=== PATIENT | female | born 1980 | race Caucasian/White ===

== ENCOUNTER 2020-04-25 16:00 | Inpatient (IN) | payer SELFPAY ==
[~2020-04-25 16:00] MED LIST: Dexamethasone 20 MG/5 ML VIAL ONE; EPHEDRINE 25 MG/5 ML SYRINGE ONE; Ketorolac Tromethamine 30 MG/ML VIAL ONE; Lidocaine 1% PF 5 ML VIAL ONE; Ondansetron PF 4 MG/2 ML Vial ONE; PROPOFOL 200 MG/20 ML VIAL ONE
[2020-04-25] MEDS ORDERED: Fentanyl 100 MCG/2 ML VIAL ONE ×2 (17:04→18:54)
[2020-04-25] MEDS ORDERED: Bacitracin Zinc Ointment 30 gm TUBE ONE (17:14)
[2020-04-25] MEDS ORDERED: Bupivacaine PF 0.5% 30 ML VIAL ONE (17:14)
[2020-04-25] MEDS ORDERED: Sodium Chloride 0.9% 0 ML ONE (17:14)
[2020-04-25] MEDS ORDERED: Acetaminophen 325 MG TAB PO PRN (17:28)
[2020-04-25] MEDS ORDERED: Ondansetron PF 4 MG/2 ML Vial SLOW IVP PRN (17:28)
[2020-04-25] MEDS ORDERED: Promethazine HCl 25 MG/ML VIAL IM PRN (17:28)
[2020-04-25] MEDS ORDERED: Fentanyl 100 MCG/2 ML VIAL SLOW IVP PRN (17:28)
[2020-04-25] MEDS ORDERED: traMADol HCl 50 MG TAB PO PRN (17:28)
[2020-04-25] MEDS ORDERED: Bisacodyl 10 MG SUPP PR PRN (17:28)
[2020-04-25] MEDS ORDERED: Milk Of Magnesia 30 ML UDCUP PO PRN (17:28)
[2020-04-25] MEDS ORDERED: Acetaminophen/Codeine 30-300mg Tablet PO PRN (17:28)
[2020-04-25] MEDS ORDERED: Communication Order-Pharmacy FS SCH (17:30)
[2020-04-25] MEDS ORDERED: Meperidine HCl/PF 25 MG/ML VIAL IM PRN (17:31)
[2020-04-25] MEDS: Ketorolac Tromethamine 30 MG/ML VIAL IVP SCH ×2 (20:29→23:21)
[2020-04-25] MEDS: Aspirin 81 mg Enteric Coated Tablet PO SCH (20:33)
[2020-04-25] MEDS: HYDROcodone/Acetaminophen 5/325 mg Tablet PO PRN (20:34)
[2020-04-25] MEDS ORDERED: TETANUS AND DIPHTHERIA TOX/PF 0.5 ML DISP.SYRIN IM SCH (21:00)
[2020-04-25 22:03] VITALS: BMI 21.2
[2020-04-25] MEDS: Sodium Chloride 0.9% 100 ML IV SCH ×2 (22:07→22:08)
[2020-04-25] MEDS: Sodium Chloride 0.9% 1,000 ML IV SCH (22:08)
[2020-04-25] MEDS: Vancomycin 1 GM in Premix Bag 1 BAG IVPB SCH (23:21)
[2020-04-26] MEDS: HYDROcodone/Acetaminophen 5/325 mg Tablet PO PRN ×4 (05:40→20:20)
[2020-04-26] MEDS: Ketorolac Tromethamine 30 MG/ML VIAL IVP SCH ×3 (05:41→18:23)
[2020-04-26] MEDS: Sodium Chloride 0.9% 1,000 ML IV SCH ×4 (05:43→20:35)
[2020-04-26 07:38] LABS: #Lymphocytes 1.7 thou/uL (1.20-3.40); #Monocytes 0.7 thou/uL (0.11-0.59); %Basophils 0.2 % (0.0-1.0); %Eosinophils 0.2 % (0.0-10.0); %Lymphocytes 23.3 % (21.0-51.0); %Monocytes 9.7 % (0.0-10.0); %Neutrophils 66.7 % (42.0-75.0); Hemoglobin 10.8 g/dL (12.0-16.0); Mean Corpuscular HGB CONC 32.1 g/dL (32.0-36.0); Mean Corpuscular Hemoglobin 28.4 pg (27.0-31.0); Mean Corpuscular Volume 88.6 fL (78.0-98.0); Mean Platelet Volume 7.2 fL (7.4-10.4); Platelet Count 483 thou/uL (130-400); RBC Distribution Width 14.7 % (11.5-14.5); White Blood Cell (WBC) Count 7.5 thou/uL (4.8-10.8)
[2020-04-26] MEDS: Aspirin 81 mg Enteric Coated Tablet PO SCH ×2 (08:43→20:16)
[2020-04-26] MEDS: Vancomycin 1 GM in Premix Bag 1 BAG IVPB SCH ×2 (08:43→16:28)
--- NOTE | 2020-04-26 08:56 | OP ---
DATE OF PROCEDURE: 04/25/2020 PREOPERATIVE DIAGNOSIS: Right middle finger PIP joint abscess. POSTOPERATIVE DIAGNOSIS: Right middle finger PIP joint abscess. FINDINGS: PIP joint abscess, intertendinous 3 mm large tendon defect with abscess and subcutaneous abscess, all in line with each other at the PIP joint, dorsum, right middle finger. PROCEDURE PERFORMED: Arthrotomy with drainage of abscess, proximal phalangeal joint, right middle finger. SPECIMEN: Cultures: 1. Subcutaneous abscess. 2. Intertendinous abscess. 3. PIP joint abscess. HISTORY: The patient reports approximately 2 weeks ago, she hit her hand while working with metal and a hammer. She had bleeding for approximately 10 to 15 minutes, got control of it and had no problem for approximately a week, but over the last 5 to 7 days noticed progressive swelling, erythema and the last two days inability to make a fist. She noticed "a pocket" of fluid over this joint. DESCRIPTION OF PROCEDURE: After successful general endotracheal anesthesia, the limb was prepped and draped. We had 10 mL of 0.5% Marcaine block given at the level of the MP joint and then we exsanguinated the limb. We inflated tourniquet to 250 mmHg pressure, made a curvilinear incision, staying off the center of the joint, we found immediately as soon as we opened the skin, there was more gross mucopurulence, although minute escaped and we cultured this subcutaneous cavity. We dissected and trimmed this abscess cavity. We saw a small rent in the tendon with some thick slime layer and this was also an intertendinous abscess, so we cultured this as well. Finally, we made arthrotomy on the ulnar side in the junction between the extensor central slip and the lateral bands and carried this into the joint and immediately, over the head of the proximal phalanx, caudal surface, there was slime there with mucopurulence and we resected this. Each individual layer was sent for cultures. We then irrigated the joint with 1500 mL of normal saline, subcu with 1500 mL under bulb syringe pressure. Deflated the tourniquet, obtained hemostasis, and left the joint open with a wet-to-dry normal saline packing down below the level of the tendon and a bulky dressing was applied with excellent circulation. She left the operating room without evidence of anesthetic or operative complication. Job ID: [id number]
[2020-04-26] MEDS: Morphine 4 MG/ML VIAL SLOW IVP PRN (23:07)
[2020-04-26 23:48] LABS: Vancomycin, Trough 13.5 ug/mL
[2020-04-27] MEDS: Vancomycin 1 GM in Premix Bag 1 BAG IVPB SCH ×3 (00:54→16:13)
[2020-04-27] MEDS: HYDROcodone/Acetaminophen 5/325 mg Tablet PO PRN ×5 (01:00→18:53)
[2020-04-27] MEDS: Aspirin 81 mg Enteric Coated Tablet PO SCH ×2 (07:55→21:26)
[2020-04-27] MEDS: Sodium Chloride 0.9% 1,000 ML IV SCH ×2 (14:48→21:31)
[2020-04-27] MEDS: Morphine 4 MG/ML VIAL SLOW IVP PRN (18:04)
[2020-04-27] MEDS: Ketorolac Tromethamine 30 MG/ML VIAL IVP PRN (21:30)
[2020-04-28] MEDS: Vancomycin 1 GM in Premix Bag 1 BAG IVPB SCH (00:12)
[2020-04-28] MEDS: HYDROcodone/Acetaminophen 5/325 mg Tablet PO PRN ×3 (00:15→18:46)
[2020-04-28] MEDS: Ketorolac Tromethamine 30 MG/ML VIAL IVP PRN (06:35)
[2020-04-28] MEDS ORDERED: Fentanyl 100 MCG/2 ML VIAL ONE ×3 (11:51→16:02)
[2020-04-28] MEDS ORDERED: Lidocaine 1% PF 5 ML VIAL ONE (12:19)
[2020-04-28] MEDS ORDERED: Ketorolac Tromethamine 30 MG/ML VIAL ONE (12:19)
[2020-04-28] MEDS ORDERED: PROPOFOL 200 MG/20 ML VIAL ONE (12:19)
[2020-04-28] MEDS ORDERED: Dexamethasone 20 MG/5 ML VIAL ONE (12:19)
[2020-04-28] MEDS ORDERED: EPHEDRINE 25 MG/5 ML SYRINGE ONE (12:19)
[2020-04-28] MEDS ORDERED: Ondansetron PF 4 MG/2 ML Vial ONE (12:19)
[2020-04-28] MEDS ORDERED: Midazolam HCl 2 mg/2 ml Vial ONE (14:01)
[2020-04-28] MEDS ORDERED: Bacitracin Zinc Ointment 30 gm TUBE ONE (14:03)
[2020-04-28] MEDS ORDERED: Bupivacaine PF 0.5% 30 ML VIAL ONE (14:03)
[2020-04-28] MEDS ORDERED: Clindamycin/D5W 600 mg/50 ml Premix Bag ONE (14:15)
[2020-04-28 15:48] LABS: Fungus Stain Final report (.)
[2020-04-28 16:40] VITALS: BP 120/73; TEMP 97.9
[2020-04-28] MEDS: Sodium Chloride 0.9% 1,000 ML IV SCH (16:44)
[2020-04-28] MEDS: Aspirin 81 mg Enteric Coated Tablet PO SCH (16:44)
--- NOTE | 2020-04-28 20:33 | CON ---
DATE OF CONSULTATION: 04/28/2020 REASON FOR CONSULTATION: Injury to right hand with tenosynovitis and septic arthritis. HISTORY OF PRESENT ILLNESS: A 39-year-old with a history of injury to the right hand while working on a table with a sledgehammer. Initially, the areas of laceration healed, but then she developed inflammatory process localized around the third digit right hand. Dr. Berry performed operative intervention on . It basically identified abscesses and tenosynovitis and PIP joint abscess. No osteomyelitis was present. The patient currently is postoperatively she is feeling okay and wants to go home. No headaches, visual symptoms, sore throat, odynophagia, or dysphagia. No cough or sputum production. No chest pain. No abdominal pain or diarrhea. No genitourinary symptoms. No other joint symptoms or neurological symptoms. PAST MEDICAL HISTORY: Not particularly remarkable. SOCIAL HISTORY: Lives in [place]. Current smoker. Drinks occasionally. History of marijuana use in the past. FAMILY HISTORY: Asthma and coronary disease. ALLERGIES: ERYTHROMYCIN WITH DIARRHEA IS NOT A TRUE ALLERGY. CURRENT MEDICATIONS: 1. [place]. 2. Ecotrin. 3. Dulcolax. 4. Sublimaze. 5. Toradol. 6. Morphine. 7. Zofran. 8. Phenergan. 9. Ultram. PHYSICAL EXAMINATION: VITAL SIGNS: She has been afebrile. BP 120/70, pulse 66, respirations 18, and O2 saturation 97. SKIN: Shows the dressing in right hand. She has peripheral IV access. No lymphadenopathy. HEENT: Not remarkable. NECK: Supple. LUNGS: Symmetric clear breath sounds. HEART: S1 and S2. Regular rate. No S3 or S4. ABDOMEN: Soft, not distended or tender. No ascites. No bladder distention. EXTREMITIES: No joint inflammatory process outside the area of involvement. No neurological findings of significance. Pulses are normal in lower extremities. Cognitive function appears to be intact. LABORATORY DATA: White cell count 7.5, hemoglobin 10.8, and platelets 483 with normal differential. Vancomycin trough 13 and SARS-CoV serology negative. Microbiology thus far no growth and nothing in Gram stain. Three different samples, AFB and fungal samples were submitted as well. Imaging with swelling soft tissue, but no bony destruction. ASSESSMENT AND PLAN: Sledgehammer injury with subsequent inflammatory changes, tenosynovitis, and septic arthritis. The types of organisms associated with this dry injuries are mostly skin roselyn + S. aureus/MRSA. One would have expected S. aureus/MRSA to be easily retrieved from site which is not the case so far. GNR are possible but less likely. Thus far, no organisms have been retrieved, so we will submit the Cipro and doxycycline to her Pharmacy for 3 weeks. Follow up in the clinic to verify a clinical response. Repeat the radiological studies in the outpatient setting. Monitor the results of the AFB and fungal cultures. We have discussed potential adverse reactions from the treatment with the patient. She understood to call us in case she develops particularly diarrhea and skin hypersensitivity type reactions. Job ID: [id number] [facility]
--- NOTE | 2020-04-30 19:05 | OP ---
DATE OF PROCEDURE: 04/28/2020 PREOPERATIVE DIAGNOSIS: Right middle finger open wound. POSTOPERATIVE DIAGNOSIS: A 5 cm wound. FINDINGS: No gross infection at the wound, tendon or joint level. PROCEDURE PERFORMED: 1. Irrigation and debridement of wound down to including joint. 2. Closure of wound, 5 cm. 3. Reapproximation of longitudinal split between the central slip and the lateral band. INDICATIONS: The patient came in with infection clinically, but never has had positive cultures. DESCRIPTION OF PROCEDURE: After successful general endotracheal anesthesia, the limb was prepped and draped. She had 50 mL 0.5% Marcaine metacarpophalangeal block and the limb was exsanguinated, tourniquet inflated to 250 mmHg pressure. The tourniquet stayed up for 8 minutes. The patient then had the wound edges inspected circumferentially. No infection was seen. There was healthy tissue except for a small amount of denuded joint capsule, which we resected using the excisional technique down to including the joint with a [place] blade, tenotomy scissors and [place] combination. We then irrigated the joint and wound with 1 L normal saline using multiple bulb syringes for pressure. We released the tourniquet, obtained hemostasis. We closed the tendon separation area with a running 5-0 Prolene buried knot. We then closed the skin with interrupted 4-0 nylon in a simple pattern. The patient left the operating room with a small bulky dressing with no evidence of anesthetic or operative complications. Job ID: [id number]
== END 2020-04-28 20:02 | disposition home or self-care (01) | DRG 506 ==
LOC: SDC 16:00 → SJJU 17:31
PROVIDERS: ADMIT Orthopaedic Surgery Hand Surgery; ATTEND Orthopaedic Surgery Hand Surgery
PROC: 0R9W0ZZ Drainage of Right Finger Phalangeal Joint, Open Approach (ICD-10-PCS; principal; 2020-04-25)
PROC: 0RBW0ZZ Excision of Right Finger Phalangeal Joint, Open Approach (ICD-10-PCS; 2020-04-28)
DX: M00.9 Pyogenic arthritis, unspecified (principal); L02.511 Cutaneous abscess of right hand; M65.841 Other synovitis and tenosynovitis, right hand; F17.200 Nicotine dependence, unspecified, uncomplicated; Z88.1 Allergy status to other antibiotic agents; Z90.81 Acquired absence of spleen
CPT/HCPCS: 36415; 80202; 85025; 87070; 87102; 87205; 87206; J1100; J1885; J2250; J2270; J2405; J2704; J3010; J3370; J3490; S0020; U0002

== ENCOUNTER 2020-08-23 17:31 | Observation (INO) | payer SELFPAY ==
[2020-08-23 18:20] LABS: #Basophils 0.1 thou/uL (0.0-0.2); #Eosinphils 0.2 thou/uL (0.0-0.7); #Lymphocytes 2.9 thou/uL (1.20-3.40); #Monocytes 0.9 thou/uL (0.11-0.59); #Neutrophils 4.7 thou/uL (1.40-6.50); %Eosinophils 2.3 % (0.0-10.0); %Lymphocytes 32.7 % (21.0-51.0); %Monocytes 10.5 % (0.0-10.0); %Neutrophils 53.5 % (42.0-75.0); Hemoglobin 10.5 g/dL (12.0-16.0); Mean Corpuscular HGB CONC 32.7 g/dL (32.0-36.0); Mean Corpuscular Hemoglobin 28.3 pg (27.0-31.0); Mean Corpuscular Volume 86.6 fL (78.0-98.0); Mean Platelet Volume 6.7 fL (7.4-10.4); Platelet Count 597 thou/uL (130-400); RBC Distribution Width 15.3 % (11.5-14.5); Red Blood Cell (RBC) Count 3.71 mill/uL (4.20-5.40); White Blood Cell (WBC) Count 8.8 thou/uL (4.8-10.8)
--- NOTE | 2020-08-23 18:43 | RAD ---
THREE VIEWS OF THE RIGHT HAND: 08/23/20 COMPARISON: None. HISTORY: Prior finger surgery, swelling. FINDINGS: There is prominent soft tissue swelling involving the third finger centered at the proximal interphal angeal joint. The third finger is fixed and flexed at the level of the proximal interphalangeal joint with possible volar subluxation of the third proximal interphalangeal joint. No subcutaneous gas or radiopaque foreign body is seen. If there is clinical concern for osteomyelitis, MRI is advised. No acute fracture is noted. IMPRESSION: Severe soft tissue swelling centered at the third proximal interphalangeal joint. The third proximal interphalangeal joint is fixed in flexion and there appears to be a degree of volar subluxation which could be related to ligamentous or tendinous injury. Infection centered at the PIP is the primary co ncern. If there is clinical concern for osteomyelitis, MRI is advised. Orthopedic consultation advi sed. Code T POS: TRENT
[2020-08-23 18:44] LABS: ALT (SGPT) 12 U/L (8-55); AST (SGOT) 20 U/L (5-34); Albumin 3.6 g/dL (3.5-5.0); Alkaline Phosphatase 84 U/L (40-110); Anion Gap 15 mmol/L (10-20); BUN (Urea Nitrogen) 18 mg/dL (7.0-18.7); Bilirubin, Total 0.2 mg/dL (0.2-1.2); Calc. Creatinine Clearance 0 mL/min (70-130); Carbon Dioxide 20 mmol/L (22-29); Chloride 109 mmol/L (98-107); Estimated GFR-MDRD 83; Globulin 2.4 g/dL (2.4-3.5); Glucose 103 mg/dL (70-105); Potassium 3.9 mmol/L (3.5-5.1); Sodium 140 mmol/L (136-145)
[2020-08-23] MEDS ORDERED: Ketorolac Tromethamine 30 MG/ML VIAL ONE (22:39)
[2020-08-23] MEDS ORDERED: Ondansetron ODT 4 MG TAB SL PRN (23:45)
[2020-08-23] MEDS ORDERED: Ondansetron PF 4 MG/2 ML Vial IVP PRN (23:45)
[2020-08-23] MEDS ORDERED: Fentanyl 100 MCG/2 ML VIAL SLOW IVP PRN (23:50)
[2020-08-24 00:31] VITALS: BMI 26.2
[2020-08-24] MEDS: Sodium Chloride 0.9% 1,000 ML IV SCH ×2 (00:41→08:34)
--- NOTE | 2020-08-24 09:27 | HP ---
BRIEF HISTORY OF PRESENT ILLNESS: The patient is a 40-year-old right-hand dominant female, who presents for re-evaluation of a right long finger dorsal wound. The patient is status post irrigation and drainage procedure with Dr. Bharat Berry on April 28, 2020. The patient was readmitted on June 08, 2020 for infection. She underwent a repeat irrigation and debridement. She has been doing daily dressing changes at home. She reports some slight increase in pain and presented to the emergency room last night. There was concern on the part of the emergency room physician about recurrent deep infection. As such, the patient was admitted to the Orthopedic Service. The patient now evaluated in her hospital room. She denies recent fevers, chills, or sweats. She has not seen Dr. Berry for followup in his clinic. She reports that she removed her sutures herself. PAST MEDICAL HISTORY: Denies past history. PAST SURGICAL HISTORY: Includes splenectomy, pelvis ORIF as well as this right long finger surgery in April with repeat irrigation and debridement in May. SOCIAL HISTORY: She consumes alcohol daily. She reports past history of drug use. Smokes half pack cigarettes per day. FAMILY HISTORY: Noncontributory for this admission. REVIEW OF SYSTEMS: No recent fevers, chills, or sweats. Denies chest pain, cough, or shortness of breath. Denies numbness, tingling, or weakness in her extremities. PHYSICAL EXAMINATION: VITAL SIGNS: Temperature 98.2, respiratory rate of 18, heart rate of 81, and blood pressure 106/65. HEENT: Atraumatic and normocephalic. HEART: Shows a regular rate and rhythm without murmur. LUNGS: Clear to auscultation bilaterally with good breath sounds. ABDOMEN: Flat and nontender. EXTREMITIES: Remarkable for this right upper extremity with a dorsal wound at the level of the proximal interphalangeal joint. This measures approximately 1.5 x 1 cm. There is a granulation tissue base at the distal portion of the wound with some fibrinous exudate more proximally, but no drainage. No surrounding erythema. There is a small Prolene suture that is exiting the wound that appears to be placed deeper. She has a fixed flexion contracture of the PIP joint of approximately 60 degrees. She has intact sensation distally with good capillary refill. IMAGING STUDIES: X-rays; plain films of this right hand show swelling at the level of the PIP joint with a fixed flexion contracture. There is no obvious evidence of osteomyelitis. LABORATORY DATA: White count of 8.8, hematocrit of 32.1, and 597,000 platelets. She has a sedimentation rate of 1 and a CRP of less than 0.5. ASSESSMENT: A 40-year-old right-hand dominant lady with past history of infection of right long finger, now with granulating wound dorsally and fixed flexion contracture, but no evidence of acute infection. PLAN: At this time, I do not see evidence for a recurrent infection. I believe at this time, she can be discharged from the hospital for followup with Dr. Berry in the next week. I have encouraged her to continue with her daily dressing changes. Job ID: [id number]
[2020-08-24 13:23] VITALS: BP 108/74; TEMP 97.6
[2020-08-24 14:55] LABS: SARS-CoV-2 N Gene Negative; SARS-CoV-2 S Gene Negative; SARS-CoV-2 by NAA Not Detected (NotDetected); SARS-CoV-2 orf1ab Negative
[2020-08-24 14:56] LABS: SARS-CoV-2 MS2 Positive
--- NOTE | 2020-08-25 13:53 | DIS ---
DATE OF ADMISSION: 08/23/2020 DATE OF DISCHARGE: 08/24/2020 This is Dylon Riggs PA-C dictating a report for Lavelle Lizarraga MD. PREOPERATIVE DIAGNOSIS: Infection, right long finger with granulating wound, fixed flexion contracture. No evidence of infection. DISCHARGE DIAGNOSIS: Infection, right long finger with granulating wound, fixed flexion contracture. No evidence of infection. PROCEDURES: None. HOSPITAL COURSE: The patient spent one night in the hospital and discharged the next day. She can follow up with Dr. Berry in regard to hands issues. Job ID: [id number]
== END 2020-08-24 13:00 | disposition home or self-care (01) ==
LOC: ERS 17:31 → SJJU 21:43
PROVIDERS: ADMIT Orthopaedic Surgery; ATTEND Orthopaedic Surgery
DX: M79.644 Pain in right finger(s) (principal); M20.091 Other deformity of right finger(s); F41.9 Anxiety disorder, unspecified; F17.210 Nicotine dependence, cigarettes, uncomplicated; F12.11 Cannabis abuse, in remission; Z88.1 Allergy status to other antibiotic agents; Z88.5 Allergy status to narcotic agent; Z88.6 Allergy status to analgesic agent; Z20.828 Contact with and (suspected) exposure to other viral communicable diseases; Z98.890 Other specified postprocedural states
CPT/HCPCS: 36415; 80053; 85025; 85652; 86140; 87635; 96374; 96375; G0378; J1885; J3010; U0003

== ENCOUNTER 2021-04-25 17:26 | Inpatient (IN) | payer SELFPAY ==
[2021-04-25 21:48] VITALS: BMI 11.0
[2021-05-02 16:45] VITALS: BP 110/67; TEMP 97.9
== END 2021-05-02 18:20 | disposition home or self-care (01) | DRG 858 ==
LOC: ERS 17:26 → SURG A 19:03 → OBSVTOIN 23:05
PROVIDERS: ADMIT Orthopaedic Surgery Hand Surgery; ATTEND Orthopaedic Surgery Hand Surgery
PROC: 0RBW0ZZ Excision of Right Finger Phalangeal Joint, Open Approach (ICD-10-PCS; principal; 2021-04-25)
PROC: 02HV33Z Insertion of Infusion Device into Superior Vena Cava, Percutaneous Approach (ICD-10-PCS; 2021-04-25)
PROC: B548ZZA Ultrasonography of Superior Vena Cava, Guidance (ICD-10-PCS; 2021-04-25)
DX: T81.49XA Infection following a procedure, other surgical site, initial encounter (principal); Z20.822 Contact with and (suspected) exposure to COVID-19; M65.041 Abscess of tendon sheath, right hand; F41.9 Anxiety disorder, unspecified; F17.210 Nicotine dependence, cigarettes, uncomplicated; Z90.49 Acquired absence of other specified parts of digestive tract; Z98.51 Tubal ligation status; Z88.1 Allergy status to other antibiotic agents; Z88.5 Allergy status to narcotic agent; Y83.8 Other surgical procedures as the cause of abnormal reaction of the patient, or of later complication, without mention of misadventure at the time of the procedure
CPT/HCPCS: 36415; 36569; 72158; 80053; 80202; 84703; 85025; 85652; 87070; 87077; 87186; 87205; 96374; A9579; C1751; G0378; J0696; J0702; J1100; J1170; J1644; J1885; J2001; J2175; J2250; J2270; J2405; J2704; J3010; J3370; J3490; J7050; S0020; U0002; U0005

== ENCOUNTER 2021-06-29 15:01 | Emergency (ER) | payer SELFPAY ==
[2021-06-29] MEDS ORDERED: HYDROcodone/Acetaminophen 5/325 mg Tablet ONE (18:23)
[2021-06-29] MEDS ORDERED: Ketorolac Tromethamine 30 MG/ML VIAL ONE ×2 (18:23→18:24)
[2021-06-29 18:30] LABS: #Basophils 0.1 thou/uL (0.0-0.2); #Eosinphils 0.2 thou/uL (0.0-0.7); #Lymphocytes 3.9 thou/uL (1.20-3.40); #Monocytes 0.9 thou/uL (0.11-0.59); #Neutrophils 5.9 thou/uL (1.40-6.50); %Basophils 0.8 % (0.0-1.0); %Eosinophils 1.9 % (0.0-10.0); %Lymphocytes 35.6 % (21.0-51.0); %Monocytes 8.1 % (0.0-10.0); %Neutrophils 53.6 % (42.0-75.0); Hemoglobin 11.7 g/dL (12.0-16.0); Mean Corpuscular HGB CONC 32.2 g/dL (32.0-36.0); Mean Corpuscular Hemoglobin 28.4 pg (27.0-31.0); Mean Corpuscular Volume 88.3 fL (78.0-98.0); Platelet Count 635 thou/uL (130-400); RBC Distribution Width 15.3 % (11.5-14.5); Red Blood Cell (RBC) Count 4.12 mill/uL (4.20-5.40)
[2021-06-29 18:52] LABS: ALT (SGPT) 14 U/L (8-55); AST (SGOT) 19 U/L (5-34); Albumin 3.7 g/dL (3.5-5.0); Alkaline Phosphatase 76 U/L (40-110); Anion Gap 14 mmol/L (10-20); BUN (Urea Nitrogen) 20 mg/dL (7.0-18.7); Bilirubin, Total Less than 0.2 mg/dL (0.2-1.2); Calc. Creatinine Clearance 0 mL/min (70-130); Calcium 8.8 mg/dL (7.8-10.44); Carbon Dioxide 20 mmol/L (22-29); Chloride 107 mmol/L (98-107); Globulin 2.6 g/dL (2.4-3.5); Glucose 88 mg/dL (70-105); Potassium 4.4 mmol/L (3.5-5.1); Protein, Total 6.3 g/dL (6.0-8.3); Sodium 137 mmol/L (136-145)
[2021-06-29] MEDS ORDERED: Bupivacaine 0.5% 10 ML VIAL ONE (19:14)
== END 2021-06-29 19:35 | disposition home or self-care (01) ==
LOC: ERS 15:01
DX: S63.282A Dislocation of proximal interphalangeal joint of right middle finger, initial encounter (principal); F17.210 Nicotine dependence, cigarettes, uncomplicated
CPT/HCPCS: 36415; 80053; 85025; 85652; 86140; J1885; J3490

== ENCOUNTER 2023-01-25 11:40 | Inpatient (IN) | payer OTHER, SELFPAY ==
[2023-01-25] MEDS ORDERED: Morphine 4 MG/ML VIAL ONE (12:53)
[2023-01-25 13:19] LABS: #Basophils 0.1 thou/uL (0.0-0.2); #Lymphocytes 0.9 thou/uL (1.20-3.40); #Monocytes 0.2 thou/uL (0.11-0.59); %Basophils 0.5 % (0.0-1.0); %Eosinophils 0.3 % (0.0-10.0); %Lymphocytes 7.7 % (21.0-51.0); %Monocytes 1.4 % (0.0-10.0); %Neutrophils 90.2 % (42.0-75.0); Hemoglobin 12.3 g/dL (12.0-16.0); Mean Corpuscular HGB CONC 33.1 g/dL (32.0-36.0); Mean Corpuscular Hemoglobin 32.5 pg (27.0-31.0); Mean Platelet Volume 7.1 fL (7.4-10.4); Platelet Count 529 10x3/uL (130-400); RBC Distribution Width 12.1 % (11.5-14.5); Red Blood Cell (RBC) Count 3.78 mill/uL (4.20-5.40); White Blood Cell (WBC) Count 11.1 10x3/uL (4.8-10.8)
[2023-01-25 13:23] LABS: BHCG - Serum Negative (NEGATIVE); Pregs Control Background? CLEAR/WHITE (CLR/WHITE); Pregs Control Bar Appear? YES (CONTROL BAR)
[2023-01-25] MEDS ORDERED: Magnevist 469MG/ML 20 ML VIAL ONE (13:54)
[2023-01-25 14:28] LABS: ALT (SGPT) 9 U/L (8-55); AST (SGOT) 14 U/L (5-34); Alkaline Phosphatase 62 U/L (40-110); Anion Gap 13 mmol/L (10-20); BUN (Urea Nitrogen) 9 mg/dL (7.0-18.7); Bilirubin, Total 0.3 mg/dL (0.2-1.2); Calc. Creatinine Clearance 0 mL/min (70-130); Calcium 8.8 mg/dL (7.8-10.44); Carbon Dioxide 20 mmol/L (22-29); Chloride 107 mmol/L (98-107); Estimated GFR 116; Globulin 2.7 g/dL (2.4-3.5); Glucose 111 mg/dL (70-105); Potassium 3.9 mmol/L (3.5-5.1); Protein, Total 6.7 g/dL (6.0-8.3); Sodium 136 mmol/L (136-145)
[2023-01-25] MEDS ORDERED: Bupivacaine HCl 0.5%/Epinephrine 1:200,000/PF 30 ml Vial ONE (15:10)
[2023-01-25] MEDS ORDERED: Thrombin 5000 UNITS/5 ML VIAL ONE (15:10)
[2023-01-25] MEDS ORDERED: Midazolam HCl 2 mg/2 ml Vial ONE (15:15)
[2023-01-25] MEDS ORDERED: fentaNYL PF 100 MCG/2 ML SYRINGE ONE ×2 (15:15→16:04)
[2023-01-25] MEDS ORDERED: HYDROmorphone 0.5 MG/0.5 ML SYRINGE ONE (15:15)
[2023-01-25] MEDS ORDERED: Sodium Chloride 0.9% 100 ML ONE (15:17)
[2023-01-25] MEDS ORDERED: CEFAZOLIN 2 GM VIAL ONE (15:17)
[2023-01-25] MEDS ORDERED: Rocuronium Bromide 10 MG/ML (10ML VIAL) ONE (15:37)
[2023-01-25] MEDS ORDERED: Ondansetron PF 4 MG/2 ML Vial ONE (15:37)
[2023-01-25] MEDS ORDERED: Lidocaine 1% PF 5 ML VIAL ONE (15:37)
[2023-01-25] MEDS ORDERED: PROPOFOL 200 MG/20 ML VIAL ONE (15:37)
[2023-01-25] MEDS ORDERED: Dexamethasone 20 MG/5 ML VIAL ONE (15:37)
[2023-01-25] MEDS ORDERED: Promethazine HCl 25 MG/ML VIAL IM PRN (16:02)
[2023-01-25] MEDS ORDERED: Ondansetron HCl/PF 4 MG/2 ML Vial IVP PRN (16:02)
[2023-01-25] MEDS ORDERED: HYDROmorphone 2 MG/ML VIAL SLOW IVP PRN (16:02)
[2023-01-25] MEDS ORDERED: SUGAMMADEX SODIUM 200 MG/2 ML VIAL ONE (16:44)
[2023-01-25] MEDS ORDERED: Ondansetron PF 4 MG/2 ML Vial IVP PRN (17:14)
[2023-01-25] MEDS ORDERED: HYDROcodone/Acetaminophen 7.5/325 mg Tablet PO PRN (17:14)
[2023-01-25] MEDS ORDERED: Bisacodyl 10 MG SUPP PR PRN (17:14)
[2023-01-25] MEDS ORDERED: Acetaminophen 325 MG TAB PO PRN (17:14)
[2023-01-25] MEDS ORDERED: diphenhydrAMINE 50 MG/ML VIAL IVP PRN (17:14)
[2023-01-25] MEDS ORDERED: fentaNYL 50 mcg/mL 1 mL Vial ONE ×2 (17:42→17:57)
[2023-01-25] MEDS ORDERED: Ketorolac Tromethamine 30 MG/ML VIAL ONE (17:43)
[2023-01-25] MEDS ORDERED: Promethazine HCl 25 MG/ML VIAL ONE (17:43)
[2023-01-25] MEDS ORDERED: Dexamethasone 4 MG TAB PO SCH (18:00)
[2023-01-25] MEDS ORDERED: Morphine 2 MG/ML VIAL ONE (18:04)
[2023-01-25] MEDS: Dexamethasone 4 MG TAB PO SCH (20:15)
[2023-01-25] MEDS: Cyclobenzaprine 10 MG TAB PO PRN (20:15)
[2023-01-25] MEDS: Morphine 2 MG/ML VIAL SLOW IVP PRN ×2 (20:28→23:27)
[2023-01-25] MEDS: Sodium Chloride 0.9% 1,000 ML IV SCH (20:38)
[2023-01-25 21:30] VITALS: BMI 24.3
[2023-01-25] MEDS: HYDROcodone/Acetaminophen 7.5/325 mg Tablet PO PRN (21:49)
[2023-01-25] MEDS: CEFAZOLIN 2 GM in Sodium Chloride 0.9% 100 ML IVPB SCH (23:19)
[2023-01-26] MEDS: HYDROcodone/Acetaminophen 7.5/325 mg Tablet PO PRN ×2 (02:12→08:59)
[2023-01-26] MEDS: Dexamethasone 4 MG TAB PO SCH ×3 (02:13→13:57)
[2023-01-26] MEDS: Sodium Chloride 0.9% 1,000 ML IV SCH (05:01)
[2023-01-26] MEDS: Morphine 2 MG/ML VIAL SLOW IVP PRN ×2 (05:12→09:40)
[2023-01-26] MEDS: CEFAZOLIN 2 GM in Sodium Chloride 0.9% 100 ML IVPB SCH (06:15)
[2023-01-26] MEDS: Cyclobenzaprine 10 MG TAB PO PRN (09:40)
[2023-01-26 15:58] VITALS: TEMP 98.5
[2023-01-26] MEDS ORDERED: Ibuprofen 800 MG TAB PO SCH (18:30)
[2023-01-26 20:16] VITALS: BP 103/65
== END 2023-01-26 21:10 | disposition home or self-care (01) | DRG 519 ==
LOC: ERS 11:40 → SDC 15:00 → MSONC 15:02 → OBSVTOIN 15:30
PROVIDERS: ADMIT Neurological Surgery; ATTEND Neurological Surgery
PROC: 01NB0ZZ Release Lumbar Nerve, Open Approach (ICD-10-PCS; principal; 2023-01-25)
PROC: 00NY0ZZ Release Lumbar Spinal Cord, Open Approach (ICD-10-PCS; 2023-01-25)
PROC: 01NR0ZZ Release Sacral Nerve, Open Approach (ICD-10-PCS; 2023-01-25)
PROC: 0SB40ZZ Excision of Lumbosacral Disc, Open Approach (ICD-10-PCS; 2023-01-25)
PROC: 00QT0ZZ Repair Spinal Meninges, Open Approach (ICD-10-PCS; 2023-01-25)
DX: M51.16 Intervertebral disc disorders with radiculopathy, lumbar region (principal); G83.4 Cauda equina syndrome; G97.41 Accidental puncture or laceration of dura during a procedure; F41.9 Anxiety disorder, unspecified; F17.210 Nicotine dependence, cigarettes, uncomplicated; R33.9 Retention of urine, unspecified; G89.29 Other chronic pain; Z98.890 Other specified postprocedural states; Z88.5 Allergy status to narcotic agent; Z88.1 Allergy status to other antibiotic agents; Z88.8 Allergy status to other drugs, medicaments and biological substances; Z90.81 Acquired absence of spleen; Z98.51 Tubal ligation status; Y83.8 Other surgical procedures as the cause of abnormal reaction of the patient, or of later complication, without mention of misadventure at the time of the procedure
CPT/HCPCS: 36415; 72158; 80053; 84703; 85025; 85652; 86140; 96374; A9579; C1713; C1889; G0390; J1100; J1170; J1885; J2250; J2270; J2272; J2405; J2550; J2704; J3010; J3490; J7050; J8540